=== PATIENT | female | born 1965 ===

== ENCOUNTER 2020-11-24 11:40 | Emergency (ER) | payer OTHER, SELFPAY ==
[2020-11-24 11:42] VITALS: BP 153/78; PULSE 74; RESP 16; TEMP 37.1; O2SAT 97
[2020-11-24 12:33] VITALS: RESP 18
[2020-11-24 12:39] LABS: Abs Immature Grans 0.02 10^3/uL (0.0-0.06); Absolute Basophil Count 0.03 10^3/uL (0.0-0.2); Absolute Eosinophil Count 0.07 10^3/uL (0.0-0.7); Absolute Lymphocyte Count 1.75 10^3/uL (1.2-3.4); Absolute Monocyte Count 0.41 10^3/uL (0.1-0.8); Absolute Neutrophil Count 6.35 10^3/uL (1.2-6.7); Basophils % 0.3; Eosinophils % 0.8; HCT 37.4 % (36.0-46.0); HGB 11.8 g/dL (11.2-15.7); Immature Grans % 0.2; Lymphocytes % 20.3; MCH 28.3 pg (27.0-33.0); MCHC 31.6 % (32.0-36.0); MCV 89.7 fL (80-95); MPV 9.5 fL (8.0-11.0); Monocytes % 4.8; Neutrophils % 73.6; Nucleated RBC 0 %; Platelet Count 385 10^3/uL (130-400); RBC 4.17 10^6/uL (3.93-5.22); RDW 13.5 % (11.7-14.6); RDW-SD 44.4 fL; WBC 8.63 10^3/uL (4.4-10.8)
[2020-11-24 13:10] LABS: ALT 28 U/L (14-59); AST 10 U/L (15-37); Albumin 4.1 g/dL (3.4-5.0); Alkaline Phosphatase 104 U/L (46-116); Anion Gap 9.9 mmol/L (3-11); BUN 27 mg/dL (7-18); Bilirubin, Total 0.4 mg/dL (0.2-1.0); CO2 25.1 mmol/L (21.0-32.0); CREATININE 0.8 mg/dL (0.55-1.02); Calcium 9.8 mg/dL (8.5-10.1); Chloride 104 mmol/L (98-107); Glucose 335 mg/dL (74-106); Potassium 4.1 mmol/L (3.5-5.1); Sodium 139 mmol/L (136-145); TSH (W/Ref FT4) 3.04 uIU/mL (0.36-3.74); Total Protein 8.6 g/dL (6.4-8.2)
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
[2020-11-24 15:11] LABS: Bilirubin Negative (Negative); Blood Negative (Negative); Clarity Clear (Clear); Glucose 500 mg/dL (Negative); Ketones Trace mg/dL (Negative); Leukocyte Esterase Negative (Negative); Nitrite Negative (Negative); Specific Gravity >= 1.030 (1.005-1.025); Urobilinogen 0.2 EU/dL (Up TO 0.2)
[2020-11-24 15:18] LABS: Bacteria Negative HPF (Negative); C & S Indicated? No; Casts Negative LPF (Negative); Crystals Negative HPF (Negative); Epithelial Cells Moderate HPF (Negative); Mucus Negative (Negative); RBC Negative HPF (0-2); WBC Negative HPF (0-5)
[2020-11-24 15:21] LABS: *AMPHETAMINES SCREEN URINE Negative (Negative); *BARBITURATES SCREEN URINE Negative (Negative); *BENZODIAZEPINES SCREEN URINE Negative (Negative); Cannabinoids THC Negative (Negative); Cocaine Screen,Urine Negative (Negative); METHADONE URINE SCREEN Negative (Negative); OPIATES URINE SCREEN Negative (Negative)
[2020-11-24 15:22] LABS: Tricyclic Antidepressants Negative (Negative)
--- NOTE | 2020-11-24 16:42 | PDOC.CMSAFED ---
- If Service Date Differs Date of service: 11/24/20 Time of Service: 16:42 Care Management Safety Plan Status: Interim - Reason for Wait Reason for Wait: Assessment/Screening CM will respond to ED to assess patient after patient has been medically cleared and assessed by screener. If screener deems patient meets criteria for psychiatric stabilization CM will facilitate interdepartmental huddle with [facility] screener for safety planning considerations and meet with patient to review [facility] policy and safety plan, establish individual wishes for treatment and maintain patient rights. In the interim; please note safety plan below to guide patient care while awaiting further assessment in the ED. SAFETY PLAN: 1. Will remain on suicide precautions and in paper clothes. 2. Will remain in room under direct supervision of one-on-one staff at all times provided by CPSO, JSOEPH, INSTRUMENT TECHNICIAN airplane navigator. 3. May have paper cups, plates, finger foods as well as a cardboard spoon with which to eat meals. 4. Follow [facility] Management of the Admitted Behavioral Health Patient policy. 5. Personal care: Comfort bath system only at this time. 6. Bathroom privileges: with escort in ED. Available in room without limitation on Med/Surg. 6. No personal belongings at this time; per RN discretion. 7. No visitors at this time. 8. Phone contact at RN discretion. 9. Activities: Music tablet per RN discretion. Med/Surg: Television and remote available at RN discretion. 10. Due to VOLUNTARY status, if patient wishes to leave [facility], staff will contact [facility] Crisis Screener ([phone]) and On-Call Chain Tender ([phone]) as soon as possible. In the event of elopement, notify [facility] Police ([phone]).
[2020-11-24 21:15] VITALS: BP 126/77; PULSE 80; RESP 16; O2SAT 100
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
[2020-11-25 07:07] LABS: COVID-19 PCR Negative (Negative); Source Nasal/Nares
[2020-11-25] MEDS: QUEtiapine 25 MG TAB 50 MG PO ×2 (07:53→20:43)
[2020-11-25] MEDS: metFORMIN 500 MG TAB 1000 MG PO ×2 (07:53→20:44)
[2020-11-25] MEDS: Lisinopril 20 MG TAB 40 MG PO (07:53)
[2020-11-25] MEDS: lamoTRIgine 100 MG TAB 200 MG PO (07:53)
[2020-11-25 07:54] VITALS: BP 154/85; PULSE 68; RESP 16; TEMP 37.1; O2SAT 100
[2020-11-25] MEDS: hydroCHLOROthiazide 12.5 MG TAB PO (07:54)
--- NOTE | 2020-11-25 11:28 | CMSP_ITS ---
- If Service Date Differs Date of service: 11/25/20 Time of Service: 11:28 Care Management Safety Plan Status: Involuntary - Reason for Wait Reason for Wait: Inpatient Admission INVOLUNTARY FOR INPATIENT PSYCHIATRIC STABILIZATION. A huddle is done at approximately 11:[address] Delatorre, ED provider, Nell, nursing open pit quarry supervisor, JOEL Gilman, Sindy, [facility], and KATERINE Olmstead, in attendance. Safety plan has been established to meet the needs of the patient, and consideration of the care team, to adhere to patient goals, identify restrictions based on behavioral status, address nutrition, and determine allowed personal belongings, tools for hygiene and personal care. Determine level of activity including ambulation, level of supervision, visitors, and determine privileges based on behaviors and level of engagement by pt. SAFETY PLAN: 1. Will remain on SI/HI precautions and in paper clothes. 2. Will remain in room under direct supervision of one-on-one staff at all times provided by CPSO, JOSEPH, DEHORNER lithopress operator. 3. May have paper cups, plates, finger foods as well as a cardboard spoon with which to eat meals. 4. Follow [facility] Management of the Admitted Behavioral Health Patient policy. 5. Personal care: Permitted to shower with supervision and at RN discretion. 6. No personal belongings 7. Visitors: Per [facility] visitor policy. 8. Activities: Soft cart items, coloring book, crayons, music tablet, television and remote if available, and other activities at RN discretion. 9. Bathroom privileges with escort while in the ED; may use bathroom available in room without restriction on Med/Surg. 10. Phone: Phone use at RN discretion. 11. Due to INVOLUNTARY status, patient is being held at [facility] by the Department of Mental Health ([facility]) until 2nd certification by [facility] Psychiatrist can be performed (within 24 hours). Staff will provide de-escalation support (CPI) as needed. If patient wishes to leave [facility], staff will contact [facility] Crisis Screener ([phone]) and On-Call Lighting Equipment Operator ([phone]) as soon as possible. In the event of elopement, notify [facility] Police ([phone]). Patient is currently involuntarily at [facility]. [facility] Frontline Contracts Administrator will continue seeking placement. Please contact the Stoker Mechanic Lighting Equipment Operator ([phone]) for any needed changes to Safety Plan. Safety plan has been provided to interdepartmental care team. [facility] discharge.
--- NOTE | 2020-11-25 11:28 | PDOC.CMSAFED ---
- If Service Date Differs Date of service: 11/25/20 Time of Service: 11:28 Care Management Safety Plan Status: Involuntary - Reason for Wait Reason for Wait: Inpatient Admission INVOLUNTARY FOR INPATIENT PSYCHIATRIC STABILIZATION. A huddle is done at approximately 11:[address] Delatorre, ED provider, Nell, nursing supervisor detasseling crew, JOEL Gilman, Sindy, [facility], and KATERINE Olmstead, in attendance. Safety plan has been established to meet the needs of the patient, and consideration of the care team, to adhere to patient goals, identify restrictions based on behavioral status, address nutrition, and determine allowed personal belongings, tools for hygiene and personal care. Determine level of activity including ambulation, level of supervision, visitors, and determine privileges based on behaviors and level of engagement by pt. SAFETY PLAN: 1. Will remain on SI/HI precautions and in paper clothes. 2. Will remain in room under direct supervision of one-on-one staff at all times provided by [employer], JOSEPH[employer] research kennel supervisor. 3. May have paper cups, plates, finger foods as well as a cardboard spoon with which to eat meals. 4. Follow [facility] Management of the Admitted Behavioral Health Patient policy. 5. Personal care: Permitted to shower with supervision and at RN discretion. 6. No personal belongings 7. Visitors: Per [facility] visitor policy. 8. Activities: Soft cart items, coloring book, crayons, music tablet, television and remote if available, and other activities at RN discretion. 9. Bathroom privileges with escort while in the ED; may use bathroom available in room without restriction on Med/Surg. 10. Phone: Phone use at RN discretion. 11. Due to INVOLUNTARY status, patient is being held at [facility] by the Department of Mental Health ([facility]) until 2nd certification by [facility] Psychiatrist can be performed (within 24 hours). Staff will provide de-escalation support (CPI) as needed. If patient wishes to leave [facility], staff will contact [facility] Crisis Screener ([phone]) and On-Call Substation Operator [employer] ([phone]) as soon as possible. In the event of elopement, notify [facility] Police ([phone]). Patient is currently involuntarily at [facility]. [facility] [employer] Tele[employer] Lines[employer] will continue seeking placement. Please contact the [employer] Substation Operator [employer] ([phone]) for any needed changes to Safety Plan. Safety plan has been provided to interdepartmental care team. Patient will be transported by the medical center at time of discharge.
--- NOTE | 2020-11-25 13:10 | PDOC.MHCN ---
Date of service: 11/25/20 Time of Service: 13:11 Mental Health Crisis Note Presenting Issue How did you arrive at the ED and why did you come: Pt arrived to the ER via ambulance due to altered mental status and possibly caused by diabetes. Precipitating Factors Pt denied SI and HI today. She is still showing signs of delusions. Disposition BEHAVIOR: Pt is friendly and cooperative. She reported that the staff at [facility] are really nice people. She is consistent in her reports of how and why she came to [place] and that this was by accident. She also stated she was seeking safety. EYE CONTACT: Pt makes good eye contact. MOOD: Pt presents as upbeat and friendly. AFFECT: Pt's affect is congruent with mood. APPETITE: Pt is eating well. SLEEP(trouble falling/staying asleep: Pt reported that she slept well last night for the first time in a long time. Plan Conversation with her son reveled that what she describes as happening is inaccurate and that this is part of her delusions. He stated that he is seeking placement in [place] as well. [facility] will keep the Pt on EE status pending her second certification slated to happen after 5pm. This clinician will call Pt's insurance to see if they will pay for placement in [place]. Was informed the only hospital's in network are [facility] and [facility]. [facility] will not be calling [facility] for placement as a result fo this call. A huddle was had and a discussion with the Pt about her EE status and she was receptive to this as long as she does not have to go back to [place]. Pt will remain at [facility] pending placement or until her symptoms subside where she can safely safety plan to return to her day to day life in her community. Signature Clinician's Name/Title: Sindy Foster MS, [facility] Emergency Services Clinician, [facility]
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
--- NOTE | 2020-11-25 22:07 | PDOC.MHCN ---
Date of service: 11/25/20 Time of Service: 18:00 Mental Health Crisis Note Presenting Issue How did you arrive at the ED and why did you come: Patient placed on involuntary status 8.9.21 and is seen for 2nd certification process via telehealth. Precipitating Factors Did not assess. Disposition BEHAVIOR: N/A EYE CONTACT: N/A MOOD: N/A AFFECT: N/A APPETITE: N/A SLEEP(trouble falling/staying asleep: N/A Plan The patient was seen by [facility] psychiatrist Dr. Mauricio for 2nd certification process. It was determined that the patient's presentation had improved and she did not present as an imminent danger to herself or others. Conferred with Dr. Delatorre - the plan going forward is for the patient's family to arrange for transportation back to [place] where either she or her family can follow-up with appropriate services as needed.
[2020-11-25] MEDS: QUEtiapine 100 MG TAB 200 MG PO (22:49)
[2020-11-26] MEDS: metFORMIN 500 MG TAB 1000 MG PO (08:13)
[2020-11-26] MEDS: lamoTRIgine 100 MG TAB 200 MG PO (08:14)
[2020-11-26] MEDS: Lisinopril 20 MG TAB 40 MG PO (08:14)
[2020-11-26] MEDS: hydroCHLOROthiazide 12.5 MG TAB PO (08:14)
[2020-11-26] MEDS: QUEtiapine 25 MG TAB 50 MG PO (08:14)
[2020-11-26 08:24] VITALS: BP 129/84; PULSE 62; RESP 16
[2020-11-26 08:27] VITALS: BP 129/84; PULSE 62; RESP 16; TEMP 36.5; O2SAT 99
--- NOTE | 2020-11-26 08:41 | NUR.NOTE ---
Up eating breakfast/talking on phone/morning meds given/cooperative.Nursing Note:
[2020-11-26] MEDS: Acetaminophen 325 MG TAB 650 MG PO (11:21)
--- NOTE | 2020-11-26 13:42 | NUR.NOTE ---
pt provided with breakfast and lunch trays Nursing Note:
--- NOTE | 2020-11-26 17:13 | CMACTNOTE_ITS ---
- If Service Date Differs Date of service: 11/26/20 Time of Service: 17:13 Care Management Activity Note Sindy met with Dr. Mauricio, state psychiatrist, via telehealth last evening for the Second Certification by Psychiatrist and was found not to be a person in need of treatment. Sindy remained at [facility] overnight due to her family's iinability to pick her up last evening and due to having no transportation back to [place], [place], where she resides. Today, Sindy was driven home by her family via private vehicle. She will follow up with her community providers and discharge plan of care as directed.
== END 2020-11-26 16:01 | disposition home or self-care (01) ==
PROVIDERS: Emergency Medicine; Student in an Organized Health Care Education/Training Program; Emergency Provider Physician Assistant
DX: F22 Delusional disorders (principal); F31.9 Bipolar disorder, unspecified; E11.65 Type 2 diabetes mellitus with hyperglycemia; Z79.84 Long term (current) use of oral hypoglycemic drugs; R81 Glycosuria; Z20.822 Contact with and (suspected) exposure to COVID-19; Z03.818 Encounter for observation for suspected exposure to other biological agents ruled out
CPT/HCPCS: 36415; 36416; 80053; 80307; 82962; 87635; 99285; 81003; 81015; 84443; 85025; 99284